=== PATIENT | female | born 1955 | race Caucasian/White ===

== ENCOUNTER 2019-03-13 21:26 | Emergency (ER) | payer MEDICARE, BC ==
[~2019-03-13] VITALS: Ht 170.2 cm; Wt 76.2 kg
--- OUTSIDE RECORDS SUMMARY | 2019-03-13 21:29 | XMS REPORT ---
Author Author [facility] Address Unknown Phone Unavailable Care Team Providers Care Fuels Engineer Name Role Phone Unavailable Unavailable Payers Payer Name Policy Type Policy Number Effective Date Expiration Date Problems This patient has no known problems. Allergies, Adverse Reactions, Alerts Allergy Name Allergy Type Status Severity Reaction(s) Onset Date Inactive Date Treating Clinician Comments Sulfa (Sulfonamide Antibiotics) DA Active U 2018-03-02 00:00:00 iodine DA Active U 2018-03-02 00:00:00 codeine DA Active U 2018-03-02 00:00:00 Sulfa (Sulfonamide Antibiotics) DA Active U 2017-07-11 00:00:00 iodine DA Active U 2014-08-06 00:00:00 codeine DA Active U 2014-08-06 00:00:00 Medications This patient has no known medications. Results Test Description Test Time Test Comments Text Results Atomic Results Result Comments BREAST ULTRASOUND BILATERAL 2019-01-02 17:28:33 - DIAG MAMM BILATERAL VALERIE CAD DIGITALBILATERAL DIGITAL DIAGNOSTIC MAMMOGRAM 3D/2D WITH CAD: 01/02/2019CLINICAL: Asymptomatic. Digital breast tomosynthesis was performed in addition to routine CC and MLO views. Current mammographic images were evaluated by either a Sciencescape M-Vu or a Corthera ImageChecker CAD (computer aided detection system). Comparison is made to exams dated 12/19/2017 mammogram, 10/12 mammogram, and 10/31/2015 mammogram - [facility] The tissue of both breasts is extremely dense, which lowers the sensitivity of mammography. There are benign calcifications in both breasts. No suspicious mass, architectural distortion, malignant type calcification, or lymph node abnormality detected. INCOMPLETE ASSESSMENT: ADDITIONAL IMAGING EVALUATION RECOMMENDEDBilateral ultrasound pending for additional evaluation. Resume annual screening mammography in one year. - BREAST ULTRASOUND BILATERALULTRASOUND OF BOTH BREASTS AND BOTH AXILLA: 01/02/2019Comparison is made to exams dated 12/19/2017 mammogram, 11/01/2016 mammogram, and [facility] Real-time ultrasound of both breasts and both axilla and clinical breast exam was performed. No abnormalities were seen sonographically in either axilla. Benign solid and cystic masses were seen. No evidence of malignancy was seen. Unchanged from the previous studies. IMPRESSION: BENIGN There is no sonographic evidence of malignancy. Patient has been informed that she has areas of dense breast tissue that could make it difficult to find a small cancer. A screening mammogram and supplemental ultrasound for dense breast tissue is recommended in 1 year.Jadyn Stewart M.D. dm/:01/02/2019 17:28:33 Draft Roller Picker: Crystal RAMIREZ, [facility] BIRADS 1-2 Combo FU Letter Mammogram BI-RADS: 0 Indeterminate Ultrasound BI-RADS: 2 Benign DIAG MAMM BILATERAL VALERIE CAD DIGITAL 2019-01-02 17:28:33 - DIAG MAMM BILATERAL VALERIE CAD DIGITALBILATERAL DIGITAL DIAGNOSTIC MAMMOGRAM 3D/2D WITH CAD: 01/02/2019CLINICAL: Asymptomatic. Digital breast tomosynthesis was performed in addition to routine CC and MLO views. Current mammographic images were evaluated by either a Sciencescape M-Vu or a Corthera ImageChecker CAD (computer aided detection system). Comparison is made to exams dated 12/19/2017 mammogram, 10/12 mammogram, and 10[facility]31/2015 [facility] The tissue of both breasts is extremely dense, which lowers the sensitivity of mammography. There are benign calcifications in both breasts. No suspicious mass, architectural distortion, malignant type calcification, or lymph node abnormality detected. INCOMPLETE ASSESSMENT: ADDITIONAL IMAGING EVALUATION RECOMMENDEDBilateral ultrasound pending for additional evaluation. Resume annual screening mammography in one year. - BREAST ULTRASOUND BILATERALULTRASOUND OF BOTH BREASTS AND BOTH AXILLA: 01/02/2019Comparison is made to exams dated 12/19/2017 mammogram, 11/01/2016 mammogram, and 10/31/2015 [facility]ogram - [facility]. Real-time ultrasound of both breasts and both axilla and clinical breast exam was performed. No abnormalities were seen sonographically in either axilla. Benign solid and cystic masses were seen. No evidence of malignancy was seen. Unchanged from the previous studies. IMPRESSION: BENIGN There is no sonographic evidence of malignancy. Patient has been informed that she has areas of dense breast tissue that could make it difficult to find a small cancer. A screening mammogram and supplemental ultrasound for dense breast tissue is recommended in 1 year.Jadyn Stewart M.D. dm/:01/02/2019 17:28:33 Draft Roller Picker: Crystal RAMIREZ, [facility]-letter sent: BIRADS 1-2 Combo FU Letter Mammogram BI-RADS: 0 Indeterminate Ultrasound BI-RADS: 2 Benign
[2019-03-13] MEDS ORDERED: HYDROCODONE/APAP 10MG-325MG TAB PO ONE (21:45)
--- NOTE | 2019-03-13 21:50 | NUR ---
MEDICATED FOR R RIB PAIN RATED 10/10 WITH NORCO 10/325
--- NOTE | 2019-03-13 22:50 | NUR ---
PT REQUESTING MORE PAIN MEDICATION; DR. EDWARDS INFORMED
[2019-03-13] MEDS ORDERED: KETOROLAC TROMETHAMINE 60 MG/2 ML VIAL IM ONE (23:00)
--- NOTE | 2019-03-13 23:03 | Diagnostic Imaging Report ---
EXAMINATION: Head CT without contrast. HISTORY:Fall. COMPARISON:None. TECHNIQUE: Multidetector axial images were obtained from the foramen magnum to the vertex without contrast. The images were reconstructed using brain and bone algorithms. Thin section brain images were reformatted into coronal and sagittal planes. Dose modulation, iterative reconstruction, and/or weight based adjustment of the mA/kV was utilized to reduce the radiation dose to as low as reasonably achievable. Intravenous contrast: None IMAGE QUALITY: Suboptimal evaluation due to motion artifacts. FINDINGS: Skull/scalp: No lytic or blastic. lesions. No surgical changes. Parenchyma: No abnormal density. No acute hemorrhage, mass or acute major vascular territorial infarct. Arteries: No density suggestive of thrombosis. Dural sinuses: No abnormal density suggestive of thrombosis. Ventricles: No hydrocephalus or displacement. Extra-axial spaces: No abnormal density. Brain volume: Generalized age-related cerebral volume loss. Craniocervical junction: No mass, Chiari malformation, or basilar invagination. Sella: No mass. Paranasal/mastoid sinuses: Imaged portions unremarkable. IMPRESSION: No acute intracranial abnormality. Generalized age-related cerebral volume loss. Signed by: Dr. Aleah Sheehan M.D. on 03/13/2019 10:59 PM
--- NOTE | 2019-03-13 23:10 | Diagnostic Imaging Report ---
History: Fall. Comparison studies: None Technique: Axial images were obtained through the cervical region.. Coronal and sagittal images reconstructed from the axial data. Dose modulation, iterative reconstruction, and/or weight based adjustment of the mA/kV was utilized to reduce the radiation dose to as low as reasonably achievable. Intravenous contrast: None Findings: Fractures: None. Soft tissue injuries: None. Atlantoaxial articulation: Intact. Alignment: Loss of normal cervical lordosis is either positional or due to muscle spasm. No scoliosis. Cervicomedullary junction: No abnormalities. The foramen magnum is patent. Soft tissues: Atherosclerotic calcification in bilateral carotid bulb. Vertebrae: Expected postoperative changes from prior anterior cervical spine fusion from level C3-C7. Suboptimal evaluation at this level due to metallic streak artifacts. The metallic hardware is intact. Intervertebral disc spacer device at level C3-C4. Partial osseous fusion at level C4-C5 and C5-C6. No fractures, infection or neoplasm. Degenerative changes: C3-C4: Mild left foraminal stenosis due to facet and uncovertebral arthrosis. C4-C5: Mild left foraminal stenosis due to uncovertebral arthrosis. C6-C7: Posterior disc osteophyte complex results in mild canal stenosis. C7-T1: Mild degenerative disc disease. Mild left foraminal stenosis due to facet and uncovertebral arthrosis. IMPRESSION: 1. No acute cervical spine fracture or dislocation. Loss of normal cervical lordosis is either positional or due to muscle spasm. 2. Ligament, spinal cord and or vascular abnormalities cannot be excluded on the basis of this examination. 3. Expected postoperative changes from prior anterior cervical spine fusion from level C3-C7. 4. Cervical spondylosis as detailed above. Signed by: Dr. Aleah Sheehan M.D. on 03/13/2019 11:06 PM
[2019-03-13] MEDS ORDERED: KETOROLAC TROMETHAMINE 60 MG/2 ML VIAL ONE (23:18)
[2019-03-13] MEDS ORDERED: LIDOCAINE 5% PATCH TP ONE (23:30)
--- NOTE | 2019-03-13 23:56 | Diagnostic Imaging Report ---
EXAMINATION: CHEST SINGLE (PORTABLE) INDICATION: Fall COMPARISON: None FINDINGS: AP view TUBES and LINES: None. LUNGS: Lungs are well inflated. Lungs are clear. There is no evidence of pneumonia or pulmonary edema. Prominent central pulmonary vasculature. PLEURA: No pleural effusion or pneumothorax. HEART AND MEDIASTINUM: The cardiomediastinal silhouette is borderline enlarged. BONES AND SOFT TISSUES: No acute osseous lesion. Soft tissues are unremarkable. Partially visualized lower cervical fixation hardware intact. Healed left rib fractures. UPPER ABDOMEN: No free air under the diaphragm. Surgical clips project at the medial aspect of the left hemidiaphragm. IMPRESSION: Borderline cardiomegaly and central pulmonary vascular congestion. Signed by: Antoine Walker DO on 03/13/2019 11:53 PM
--- NOTE | 2019-03-13 23:59 | Diagnostic Imaging Report ---
X-ray pelvis one view, x-ray bilateral hips 2 views each HISTORY: Pain. COMPARISON: None available. FINDINGS: Bones: No acute displaced fracture. Partially visualized lytic and sclerotic changes in the proximal femur Joints: The joint spaces are well-maintained. Mild degenerative changes in the hips. Soft tissues: Calcific enthesopathic changes about the right greater trochanter. IMPRESSION: Partially visualized lytic and sclerotic changes in the proximal femur. Recommend dedicated right femur radiograph. Mild degenerative changes in the hips. Signed by: Antoine Walker DO on 03/13/2019 11:56 PM
[2019-03-14] MEDS ORDERED: TRAMADOL HCL 50 MG TAB PO ONE (00:30)
[2019-03-14] MEDS ORDERED: ULTRAM 50MG50 MG PO (00:49)
[2019-03-14] MEDS ORDERED: ROBAXIN-750750 MG PO (00:49)
[2019-03-14] MEDS ORDERED: LIDOPATCH1 EACH TOP (01:19)
== END 2019-03-14 01:30 | disposition home or self-care (01) ==
LOC: ER 21:26
DX: S20.211A Contusion of right front wall of thorax, initial encounter (principal); W01.10XA Fall on same level from slipping, tripping and stumbling with subsequent striking against unspecified object, initial encounter; Y92.481 Parking lot as the place of occurrence of the external cause
CPT/HCPCS: 70450; 71045; 72125; 73523; 99283; J1885

== ENCOUNTER → 2021-01-22 | Day surgery (SDC) | payer MEDICARE, BC ==
[2021-01-19 15:35] LABS: BASOPHILS % 0.1 % (0.0-1.0); EOSINOPHILS # (AUTO) 0.1 (0.0-0.4); EOSINOPHILS % 1.7 % (0.0-6.0); HEMATOCRIT 36.5 % (34.2-44.1); HEMOGLOBIN 11.4 g/dL (12.0-16.0); LYMPHOCYTES # (AUTO) 1.2 (1.0-3.2); LYMPHOCYTES % 15.2 % (18.0-39.1); MEAN CORPUSCULAR HGB CONC 31.2 g/dL (31-35); MEAN CORPUSCULAR VOLUME 92.9 fL (81-99); MONOCYTES # (AUTO) 0.6 (0.2-0.8); NEUTROPHILS # (AUTO) 6.1 (2.1-6.9); NEUTROPHILS % 75.5 % (38.7-80.0); PLATELET COUNT 423 x10e3/uL (140-360); RED BLOOD COUNT 3.93 x10e6/uL (3.6-5.1); RED CELL DISTRIBUTION WIDTH 14.9 % (11.7-14.4)
[~2021-01-22] MED LIST: ATORVASTATIN CA20 MG PO; BONE UP PO; CLONAZEPAM0.5 MG PO; COENZYME B COMPLEX PO; COQ-10100 MG PEG; FAMOTIDINE20 MG PO; FENTANYL CITRATE/PF 100MCG/2 ML INJ ONE; LAMOTRIGINE150 MG PO; LEXAPRO20 MG PO; LIDOCAINE HCL 2% LOCAL INJ 5 ML SDV VIAL INJ ONE; LIDOPATCH1 EACH TOP; LISINOPRIL10 MG PO; MAGNESIUM PO; MIDAZOLAM HCL 2 MG/2 ML VIAL ONE; PROPOFOL IV EMULSION 10 MG/ML 20 ML VIAL ONE; QUETIAPINE FUM100 MG PO; ROBAXIN-750750 MG PO; SODIUM BICARBO650 MG PO; TRICOR145 MG PO; ULTRAM 50MG50 MG PO; VITAMIN C COMPLEX PO
[2021-01-22 08:45] VITALS: BP 134/68
== END | disposition home or self-care (01) ==
LOC: OR 05:53
PROVIDERS: ATTEND Internal Medicine Gastroenterology
DX: D12.8 Benign neoplasm of rectum (principal); D17.5 Benign lipomatous neoplasm of intra-abdominal organs; K57.30 Diverticulosis of large intestine without perforation or abscess without bleeding; K64.8 Other hemorrhoids; K80.20 Calculus of gallbladder without cholecystitis without obstruction; J44.9 Chronic obstructive pulmonary disease, unspecified; K21.9 Gastro-esophageal reflux disease without esophagitis; E78.5 Hyperlipidemia, unspecified; N18.9 Chronic kidney disease, unspecified; Z86.010 Personal history of colon polyps; E66.3 Overweight; Z68.26 Body mass index [BMI] 26.0-26.9, adult; I10 Essential (primary) hypertension; F17.200 Nicotine dependence, unspecified, uncomplicated; Z88.2 Allergy status to sulfonamides; Z88.8 Allergy status to other drugs, medicaments and biological substances; Z88.6 Allergy status to analgesic agent; Z91.041 Radiographic dye allergy status; Z91.040 Latex allergy status; Z01.810 Encounter for preprocedural cardiovascular examination; Z01.812 Encounter for preprocedural laboratory examination; Z20.822 Contact with and (suspected) exposure to COVID-19
CPT/HCPCS: 36415; 45385; 85025; 93005; J2001; J2250; J2704; J3010; U0002; 45378

== ENCOUNTER → 2021-09-29 | Day surgery (SDC) | payer MEDICARE, BC ==
[2021-09-28 12:42] LABS: BASOPHILS % 0.5 % (0.0-1.0); EOSINOPHILS # (AUTO) 0.2 (0.0-0.4); EOSINOPHILS % 2.4 % (0.0-6.0); HEMATOCRIT 35.6 % (34.2-44.1); HEMOGLOBIN 11.2 g/dL (12.0-16.0); LYMPHOCYTES # (AUTO) 1.3 (1.0-3.2); LYMPHOCYTES % 19.9 % (18.0-39.1); MEAN CORPUSCULAR HEMOGLOBIN 29.6 pg (28-32); MEAN CORPUSCULAR HGB CONC 31.5 g/dL (31-35); MEAN CORPUSCULAR VOLUME 94.2 fL (81-99); MONOCYTES # (AUTO) 0.6 (0.2-0.8); NEUTROPHILS # (AUTO) 4.5 (2.1-6.9); NEUTROPHILS % 67.6 % (38.7-80.0); PLATELET COUNT 490 x10e3/uL (140-360); RED BLOOD COUNT 3.78 x10e6/uL (3.6-5.1); RED CELL DISTRIBUTION WIDTH 14.1 % (11.7-14.4)
[2021-09-28 13:00] LABS: ALBUMIN 3.5 g/dL (3.5-5.0); ANION GAP 16.1 mmol/L (8-16); CALCIUM 8.7 mg/dL (8.4-10.2); CHOL/HDL RATIO 4.8 (3.0-3.6); CREATININE, SERUM 1.69 mg/dL (0.57-1.11); POTASSIUM 5.1 mmol/L (3.5-5.1)
[2021-09-29] VITALS (9 sets, daily range): BP systolic 118–136; BP diastolic 54–68
[~2021-09-29] VITALS: Ht 170.2 cm; Wt 74.8 kg
[~2021-09-29] MED LIST changes: +ALPRAZOLAM 0.5 MG TAB ONE; +ASPIRIN81 MG PO; +DIPHENHYDRAMINE HCL 25 MG CAP ONE; +HEPARIN SOD/SOD CHLORIDE 2,000 ML ONE; +IOPAMIDOL 370 MG/ML 100 ML INFUS..BTL INJ ONE; +LIDOCAINE HCL 2% LOCAL 20 ML VIAL ONE; -LIDOCAINE HCL 2% LOCAL INJ 5 ML SDV VIAL INJ ONE; +NITROGLYCERIN/D5W 200 MCG/ML 250 ML ONE; +PLAVIX75 MG PO; +PREDNISONE 20 MG TAB PO ONE; -PROPOFOL IV EMULSION 10 MG/ML 20 ML VIAL ONE; +SODIUM CHLORIDE 0.9% 1000ML 1,000 ML ONE; +VERAPAMIL HCL 2.5 MG/ML 2 ML VIAL ONE
== END | disposition home or self-care (01) ==
LOC: CATH LAB 11:03
PROVIDERS: ATTEND Internal Medicine Interventional Cardiology
DX: I25.118 Atherosclerotic heart disease of native coronary artery with other forms of angina pectoris (principal); R94.39 Abnormal result of other cardiovascular function study; Z01.812 Encounter for preprocedural laboratory examination; Z20.822 Contact with and (suspected) exposure to COVID-19; Z79.02 Long term (current) use of antithrombotics/antiplatelets; Z79.82 Long term (current) use of aspirin; Z79.899 Other long term (current) drug therapy
CPT/HCPCS: 36415; 76937; 80053; 80061; 83880; 85025; 93454; C1887; J2001; J2250; J3010; J7030; J7512; Q9967; U0002; 99152